=== PATIENT | female | born 1965 | race Caucasian/White ===

== ENCOUNTER 2016-12-24 13:05 | Outpatient (CLI) | payer OTHER ==
--- NOTE | 2016-12-24 15:17 | RAD ---
TWO VIEWS RIGHT FOOT: History: Arthritis. Arthritis foot pain. FINDINGS: Two views of the right foot shows no evidence of acute fracture or dislocation. No degenerative gilbert ges are seen. No soft tissue swelling is present. IMPRESSION: Unremarkable exam. POS: [facility]
--- NOTE | 2016-12-24 15:22 | RAD ---
TWO VIEWS LEFT FOOT: Comparison: None. History: Left foot pain with arthritis. FINDINGS: Two views of the left foot shows no evidence of acute fracture or dislocation. No degenerative barr es are seen. No focal soft tissue swelling is present. IMPRESSION: Unremarkable exam. POS: [facility]
== END 2016-12-24 13:06 | disposition home or self-care (01) ==
LOC: MADRAD 13:05
PROVIDERS: ATTEND Orthopaedic Surgery
DX: M13.80 Other specified arthritis, unspecified site (principal)

== ENCOUNTER 2021-05-10 08:51 | Outpatient (CLI) | payer OTHER | END 2021-05-10 08:52 | disposition home or self-care (01) | LOC: MADLAB 08:51 → MADRAD 08:52 | PROVIDERS: ATTEND Chiropractor | DX: M45.9 Ankylosing spondylitis of unspecified sites in spine (principal); M47.816 Spondylosis without myelopathy or radiculopathy, lumbar region | CPT/HCPCS: 72100; 72220 ==